=== PATIENT | female | born 1945 | race Caucasian/White ===

== ENCOUNTER 2020-02-09 | Emergency (ER) | payer MEDICARE ==
[2020-02-09] MEDS ORDERED: DOXYCYCL HYC100 M4 PO (12:06)
== END 2020-02-09 12:28 | disposition home or self-care (01) ==
DX: J06.9 Acute upper respiratory infection, unspecified (principal)

== ENCOUNTER 2020-02-11 | Emergency (ER) | payer MEDICARE ==
[~2020-02-11] MED LIST: DOXYCYCL HYC100 M4 PO
[2020-02-11] MEDS ORDERED: PREVACID30 M1 PO (14:15)
[2020-02-11] MEDS ORDERED: VENLAFAXINE75 M1 PO (14:16)
[2020-02-11] MEDS ORDERED: SINEMET CR PO (14:17)
[2020-02-11] MEDS ORDERED: CARB/LEVO1 TA5 PO (14:17)
[2020-02-11] MEDS ORDERED: GABAPENTIN600 MG PO (14:18)
[2020-02-11] MEDS ORDERED: MYRBETRIQ25 MG PO (14:18)
[2020-02-11 14:27] LABS: HEMATOCRIT 38.8 % (37.0-47.0); HEMOGLOBIN 12.3 g/dl (12.0-16.0); IMMATURE GRANULOCYTES 0.2 % (0.0-5.0); MEAN CELL VOLUME 87.6 fL CALC (80.0-100.0); MEAN CORPUSCULAR HGB 27.8 pG CALC (26.0-32.0); MEAN CORPUSCULAR HGB CONC 31.7 g/L CALC (32.0-36.0); NEUT# 2.52 thou/uL (2.00-7.15); RED BLOOD COUNT 4.43 mill/uL (4.20-5.60); RED CELL DISTRI WIDTH 14.4 % (11.5-15.5)
[2020-02-11 14:40] LABS: ANION GAP 8 (6-22 (CALC)); BUN 13 mg/dL (8-23); BUN/CREATININE RATIO 25 (12-20 (CALC)); CARBON DIOXIDE 30 mmol/l (22-30); CHLORIDE 102 mmol/l (95-108); CREATININE 0.5 mg/dL (0.5-1.0); GFR > 60 ML/MIN (>=60 (CALC)); GFR FOR AFR.AMER. > 60 ML/MIN (>=60 (CALC)); POTASSIUM 4.5 mmol/l (3.5-5.1); SODIUM 136 mmol/l (137-146)
[2020-02-11] MEDS ORDERED: PROAIR HFA108 MCG/AC PO (15:31)
[2020-02-11] MEDS ORDERED: CHERATUSSIN PO (15:31)
== END 2020-02-11 15:50 | disposition home or self-care (01) ==
PROVIDERS: Family Medicine
DX: J06.9 Acute upper respiratory infection, unspecified (principal)